=== PATIENT | female | born 1990 | race Caucasian/White ===

== ENCOUNTER 2019-05-14 20:08 | Inpatient (IN) | payer BC, OTHER ==
[~2019-05-14] VITALS: Ht 177.8 cm; Wt 69.9 kg
[2019-05-14 20:05] VITALS: BP 152/111
--- NOTE | 2019-05-14 20:26 | NUR ---
EMS Patient brought in from [place]. C/O nausea and vomiting X1 day - patient believes it to be food poisoning. Was traveling from [place], [place] to [place], [place]. No medical hx, no allergies per patient. Patient unsure if is a factor.
[2019-05-14 20:43] LABS: BILIRUBIN,URINE NEGATIVE (NEGATIVE); UROBILINOGEN,URINE NORMAL (NEGATIVE)
[2019-05-14 20:46] LABS: APPEARANCE,URINE CLOUDY (CLEAR); UA COLOR YELLOW (YELLOW)
[2019-05-14] MEDS ORDERED: NS 25ML 25 ML IV ONE (20:51)
[2019-05-14] MEDS ORDERED: PHENERGAN ONE (20:51)
[2019-05-14] MEDS ORDERED: PHENERGAN IV ONE (21:00)
[2019-05-14 21:17] LABS: BASOPHIL % 0.1 % (0.0-0.2); EOSINOPHIL % 0.2 % (0.0-5.0); LYMPHOCYTES # 1.4 10^3/uL (1.0-4.8); LYMPHOCYTES % 8.5 % (24.0-44.0); MEAN CORP HGB 30.5 pg (26-34); MONOCYTES # 0.7 10^3/uL (0.3-0.8); MONOCYTES % 4.5 % (5.0-12.0); NEUTROPHIL # 14.1 10^3/uL (1.8-7.7); NEUTROPHILS % 86.4 % (41.0-85.0); RED CELL DISTRIBUTION WIDTH 12.4 % (11.5-14.5)
[2019-05-14] MEDS ORDERED: ZOFRAN 4 MG/2 ML VIAL ONE (21:21)
[2019-05-14] MEDS ORDERED: ZOFRAN 4 MG/2 ML VIAL IV ONE (21:30)
[2019-05-14 21:33] LABS: CALCIUM 8.2 mg/dL (8.4-10.5); CARBON DIOXIDE 25.2 mmol/L (20.0-32)
--- NOTE | 2019-05-14 21:53 | DIREP ---
PROCEDURE:XR ABDOMEN 2 VIEWS COMPARISON:None. INDICATIONS:Vomiting TECHNIQUE:Flat and upright views of the abdomen are provided. FINDINGS: BOWEL GAS PATTERN:Normal. CALCIFICATIONS:None significant. LUNG BASES:Clear. BONES:Normal. OTHER:No additional findings. CONCLUSION: 1. Nonobstructive bowel gas pattern and no acute findings. Dictated by: Freemna Jay Jr. on 05/14/2019 at 09:51 PM
--- NOTE | 2019-05-14 21:58 | DIREP ---
PROCEDURE:CT HEAD OR BRAIN W/O CONTRAST COMPARISON:None. INDICATIONS:Dizziness TECHNIQUE:CT images were created without intravenous contrast. FINDINGS: VENTRICLES:The ventricles are normal in size and configuration. CEREBRUM:Normal cerebral morphology with appropriate barboza white matter differentiation. CEREBELLUM:Negative. BRAINSTEM:Negative. BASAL CISTERNS:Negative. HEMORRHAGE:No MASS LESION:No ACUTE INFARCT:No SKULL:Normal. SINUSES:Normal. OTHER:None CONCLUSION:Normal examination. Dictated by: Freeman Jay Jr. on 05/14/2019 at 09:56 PM
[2019-05-14] MEDS ORDERED: ZOSYN 3.375 GM 3.375 GM in NS 100ML 100 ML IV STA (23:04)
[2019-05-14] MEDS ORDERED: NS IV STA (23:04)
[2019-05-14] MEDS ORDERED: NS 100ML 100 ML IV ONE (23:26)
--- NOTE | 2019-05-14 23:39 | NUR ---
MEDS: NEW LITER OF NS HUNG TO GRAVITY. ZOSYN 3.375MG IN NS 100ML STARTED @ 100ML/HR. IV SITE UNREMARKABLE. ASSISTED PT TO REPOSITION ON LEFT SIDE WITH HOB RAISED. PT TOLERATING WELL.
--- NOTE | 2019-05-15 00:29 | DIREP ---
PROCEDURE:CT ABDOMEN/PELVIS W/O CONTRAST COMPARISON:None. INDICATIONS:Abdominal pain and vomiting TECHNIQUE:Axial images were created through the abdomen and pelvis without intravenous contrast material. No oral contrast was administered. Sagittal and coronal reconstructions were performed from source images. FINDINGS: LUNG BASES:Normal. No visible pulmonary or pleural disease. LIVER:Normal. No significant liver lesions are identified. BILIARY:Normal. No visible dilatation or calcification. PANCREAS:Normal. No lesion, fluid collection, ductal dilatation, or atrophy. SPLEEN:Normal. No enlargement or focal lesion. ADRENALS:Normal. No mass or enlargement. URINARY TRACT:Normal. No focal lesions or hydronephrosis. AORTA/VASCULAR:Normal. No aneurysm. RETROPERITONEUM:Normal. No mass or adenopathy. BOWEL/MESENTERY:The appendix is visualized and appears normal. There is no intestinal obstruction, free fluid, free air or mesenteric inflammatory changes. Moderate stool burden. ABDOMINAL WALL:Normal. No mass or hernia. PELVIC ORGANS:Moderate urinary bladder distention. Pelvis otherwise unremarkable. BONES:Normal for age. No bony lesion or acute fracture. OTHER:Negative. CONCLUSION: 1. No acute intra-abdominal/pelvic process demonstrated. 2. Normal appendix. 3. Moderate amount of stool seen throughout the colon, correlate for constipation. Dictated by: Tomer Urban M.D. on 05/15/2019 at 00:24 AM
--- NOTE | 2019-05-15 00:41 | NUR ---
FLOOR ROOM RECEIVED 303
--- NOTE | 2019-05-15 00:55 | ER.PDOC ---
General Chief Complaint: Abdomen Pain Stated Complaint: ABD PAIN,VOMITING Time seen by MD: 21:50 Source: patient Exam Limitations: no limitations History of Present Illness Initial Comments Nausea/vomiting/abdominal pain and dizziness for 2 days. Severity/Quality: moderate, dullness Associated Symptoms (vomiting): freq vomitng Vital Signs First Vital Signs Date Time Temp Pulse Resp B/P (MAP) Pulse Ox O2 Delivery O2 Flow Rate FiO2 05/14/19 20:05 97.5 55 24 100 05/14/19 20:05 152/111 (125) Last Vital Signs Date Time Temp Pulse Resp B/P (MAP) Pulse Ox O2 Delivery O2 Flow Rate FiO2 05/14/19 20:05 97.5 55 24 152/111 (125) 100 Past Medical History Medical History: no pertinent history Surgical History: no surgical history Social History Alcohol Use: occassionally Drug Use: none Constitutional: no symptoms reported EENTM: see HPI Respiratory: no symptoms reported Cardiovascular: no symptoms reported Gastrointestinal: see HPI All Other Systems: Reviewed and Negative Physical Exam General Appearance: No Apparent Distress, WD/WN HEENT: Normal ENT Inspection Neck: Non-Tender, Full Range of Motion, Supple, Normal Inspection Respiratory: chest non-tender, lungs clear, normal breath sounds, no respiratory distress, no accessory muscle use Cardiovascular: Normal Peripheral Pulses, Regular Rate, Rhythm, No Edema, No Gallop, No JVD, No Murmur Gastrointestinal: Normal Bowel Sounds, Non Tender, Soft Back: Normal Inspection, No CVA Tenderness, No Vertebral Tenderness Extremities: Normal Range of Motion, Non-Tender, Normal Inspection, No Pedal Edema, No Calf Tenderness, Normal Capillary Refill, Pelvis Stable 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, No Motor/Sensory Deficits, Alert, Normal Mood/Affect, Oriented x 3 Skin: Normal Color, Warm/Dry Results/Orders Results/Orders Orders - PEPE FORTE MD Urinalysis (05/14/19 20:27) Hcg Urine (05/14/19 20:27) 0.9 % Sodium Chloride (Ns 25ml) (05/14/19 20:51) Promethazine Hcl (Phenergan) (05/14/19 20:51) Urine Culture (05/14/19 20:36) Promethazine Hcl (Phenergan) (05/14/19 21:00) Cbc With Auto Diff (05/14/19 21:05) Comprehensive Metabolic Panel (05/14/19 21:05) Ct Head Wo Contrast (05/14/19 21:05) Lipase (05/14/19 21:06) Xr Abd 2v (05/14/19 21:06) Ondansetron Hcl/Pf (Zofran 4 Mg/2 Ml Via (05/14/19 21:21) Ondansetron Hcl/Pf (Zofran 4 Mg/2 Ml Via (05/14/19 21:30) Ct Abd/Pelvis Wo Iv Contrast (05/14/19 23:04) 0.9 % Sodium Chloride (Ns 1000ml) (05/14/19 23:04) Piperacillin Sodium/Tazobactam (Zosyn 3. (05/14/19 23:04) Blood Culture (05/14/19 23:04) Lactic Acid(Ml) (05/14/19 23:04) 0.9 % Sodium Chloride (Ns 100ml) (05/14/19 23:26) Lactic Acid(Ml) (05/14/19 UNK) Vital Signs Date Time Temp Pulse Resp B/P (MAP) Pulse Ox O2 Delivery O2 Flow Rate FiO2 05/14/19 20:05 97.5 55 24 152/111 (125) 100 05/14/19 20:05 97.5 55 24 100 Administered Medications Medications (Trade) Dose Ordered Sig/Eugenia Route PRN Reason Start Time Stop Time Status Last Admin Dose Admin Ondansetron HCl (Zofran 4 Mg/2 ml Vial) 4 mg OT ONCE IV 05/14/19 21:30 05/14/19 21:31 DC 05/14/19 21:32 4 MG Piperacillin Sod/ Tazobactam Sod 3.375 gm/Sodium Chloride 100 ml @ 100 mls/hr STAT STAT IV 05/14/19 23:04 05/15/19 00:03 UNV 05/14/19 23:29 100 MLS/HR Promethazine HCl (Phenergan) 25 mg OT ONCE IV 05/14/19 21:00 05/14/19 21:01 DC 05/14/19 20:58 25 MG Sodium Chloride 2,041 ml @ 1,020.5 mls/ hr OT STAT IV 05/14/19 23:04 05/15/19 01:03 UNV 05/14/19 23:29 1,020.5 MLS/HR Laboratory Tests Test 05/14/19 20:36 05/14/19 21:14 05/14/19 23:17 Urine Collection Type VOID Urine Color YELLOW (YELLOW) Urine Appearance CLOUDY (CLEAR) H Urine Bilirubin NEGATIVE MG/DL (NEGATIVE) Urine Ketones 50 mg/dL (NEGATIVE) Urine Specific [place] 1.010 (1.005-1.035) Urine pH 7 (5.0-6.0) Urine Protein NEGATIVE (NEGATIVE) Urine Urobilinogen NORMAL (NEGATIVE) Urine Nitrate NEGATIVE (NEGATIVE) Urine Leukocyte Esterase 25 /uL TRACE (NEGATIVE) Urine Blood NEGATIVE (NEGATIVE) Urine RBC 0-2 RBC/HPF (NONE SEEN) Urine WBC 5-10 WBC/HPF (0-2) H Urine Squamous Epithelial Cells MODERATE #/HPF (FEW) Urine Amorphous Sediment SMALL (NONE SEEN) Urine Bacteria FEW (NONE SEEN) H Urine Glucose NORMAL (NEGATIVE) Urine HCG, Qualitative NEGATIVE (NEGATIVE) White Blood Count 16.3 10^3/uL (4.5-11.0) H Red Blood Count 4.52 10^6/uL (4.00-5.20) Hemoglobin 13.8 g/dL (12.0-15.0) Hematocrit 39.9 % (36.0-46.0) Mean Corpuscular Volume 88.3 fL (78-100) Mean Corpuscular Hemoglobin 30.5 pg (26-34) Mean Corpuscular Hemoglobin Concent 34.6 g/dL (33-37) Red Cell Distribution Width 12.4 % (11.5-14.5) Platelet Count 280 10^3/uL (150-400) Mean Platelet Volume 9.6 fL (7.8-11.0) Neutrophils (%) (Auto) 86.4 % (41.0-85.0) H Lymphocytes (%) (Auto) 8.5 % (24.0-44.0) L Monocytes (%) (Auto) 4.5 % (5.0-12.0) L Neutrophils # (Auto) 14.1 10^3/uL (1.8-7.7) H Lymphocytes # (Auto) 1.4 10^3/uL (1.0-4.8) Monocytes # (Auto) 0.7 10^3/uL (0.3-0.8) Absolute Immature Granulocyte (auto 0.05 10^3 u/L (0-2) Immature Granulocytes % 0.30 % (0.00-0.50) Eosinophils % 0.2 % (0.0-5.0) Basophils % 0.1 % (0.0-0.2) Basophils # 0.0 10^3/uL (0.0-0.1) Eosinophil Count 0.0 10^3/uL (0.0-0.2) Sodium Level 137 mmol/L (132-145) Potassium Level 4.1 mmol/L (3.6-5.2) Chloride Level 101.0 mmol/L (96-109) Carbon Dioxide Level 25.2 mmol/L (20.0-32) Anion Gap 14.9 Blood Urea Nitrogen 6 mg/dL (7-18) L Creatinine 0.79 mg/dL (0.59-1.40) Estimated GFR () 104.9 (>/=60) BUN/Creatinine Ratio 7.0 Glucose Level 154 mg/dL (70-110) H Calcium Level 8.2 mg/dL (8.4-10.5) L Total Bilirubin 0.3 mg/dL (0.2-1.0) Aspartate Amino Transferase (AST) 20 U/L (0-35) Alanine Aminotransferase (ALT) 29 U/L (12-78) Alkaline Phosphatase 54 U/L (50-136) Total Protein 7.0 g/dL (6.4-8.2) Albumin 3.6 g/dL (3.4-5.0) Globulin 3.4 Lipase 79 U/L (114-286) L Lactic Acid Level 2.1 mmol/L (0.50-2.00) H Progress Progress CT abdomen/pelvis: No acute intra-abdominal/pelvic process demonstrated. 2. Normal appendix. 3. Moderate amount of stool seen throughout the colon, correlate for constipation. EKG/XRAY/CT/US CT Comments: Normal CT head Departure Time of Disposition: 00:53 Disposition: 09 ADMITTED INPATIENT Impression: Primary Impression: Sepsis Additional Impressions: UTI (urinary tract infection) Intractable nausea and vomiting Condition: Stable Referrals: PCP,UNKNOWN (PCP) PRIMARY CARE PROVIDER Comments Admitted to Dr. Karri Duration or Time Spent with Pa: 60 mins Problem Qualifiers Primary Impression: Sepsis Sepsis type: sepsis due to unspecified organism Sepsis acute organ dysfunction status: unspecified Qualified Codes: A41.9 - Sepsis, unspecified organism Additional Impressions: UTI (urinary tract infection) Urinary tract infection type: site unspecified Hematuria presence: without hematuria Qualified Codes: N39.0 - Urinary tract infection, site not specified PEPE FORTE MD May 15, 2019 00:55
[2019-05-15 02:25] VITALS: BP 151/101
[2019-05-15] MEDS: NS 1000ML/KCL 20MEQ 1,000 ML IV SCH ×3 (03:04→15:22)
[2019-05-15] MEDS ORDERED: NS 100ML 100 ML IV ONE ×2 (04:59→21:15)
[2019-05-15] MEDS: ZOFRAN 4 MG/2 ML VIAL IV PRN (04:59)
[2019-05-15] MEDS: ZOSYN 3.375 GM 3.375 GM in NS 100ML 100 ML IV SCH ×3 (05:03→17:30)
[2019-05-15 07:33] LABS: BASOPHIL % 0.1 % (0.0-0.2); LYMPHOCYTES # 1.3 10^3/uL (1.0-4.8); LYMPHOCYTES % 11.3 % (24.0-44.0); MEAN CORP HGB 30.8 pg (26-34); MONOCYTES # 0.6 10^3/uL (0.3-0.8); MONOCYTES % 5.1 % (5.0-12.0); NEUTROPHIL # 9.4 10^3/uL (1.8-7.7); NEUTROPHILS % 83.3 % (41.0-85.0); RED CELL DISTRIBUTION WIDTH 12.6 % (11.5-14.5)
[2019-05-15 07:51] LABS: CARBON DIOXIDE 25.6 mmol/L (20.0-32)
[2019-05-15 07:52] LABS: CALCIUM 8.7 mg/dL (8.4-10.5)
[2019-05-15 08:03] VITALS: BP 139/80
--- NOTE | 2019-05-15 08:06 | PCM.HP ---
History of Present Illness Reason for Visit: Dizziness, N/V x 1-2 days History of Present Illness Patient is a 28 F no PMH presents with Dizziness, Nausea, vomiting x 1-2 days but symptoms became severe yesterday. Patient in ER found to be septic. CT head negative. Patient has UTI and fecal burden per CT abdomen with no other abnormalities. Patient has no meningeal signs. She is having headache and severe dizziness/vertigo. No fever. She denies constipation and says she had BM yesterday. Her labs, imaging were reviewed. She was started on IVF, IV abx, and blood/urine cx ordered. Patient has no focal deficits. She is not confused. She is alert and answers questions appropriately. Her family reports strong family history of Meniere's Disease with family members having such severe symptoms they were hospitalized. Given this family hx, with no meningeal signs, no focal deficits, no fever, we have source of sepsis from urine, and presence of significant fecal burden I do feel that LP could cause worsening of Meniere's symptoms and is not warranted. She is resting comfortably during my evaluation. I discussed plan of care with patient and she verbalized agreement/understanding. Past Surgical History: Other (EGD) Past Social History Smoke: No Alcohol: occassional Drugs: None Lives: Roommate Travel Hx EBOLA RISK:Travel to/contact w: No Review of Systems Constitutional: No: Fever, Chills Eyes: No: Conjunctivae inflammation, Eyelid inflammation ENT: No: Nose discharge, Nose congestion Respiratory: No: Cough, Shortness of breath, SOB with excertion, Wheezing Cardiovascular: Lt Headedness, Other (dizziness); No: Chest Pain, Palpitations Gastrointestinal: Nausea, Vomiting; No: Abdominal Pain, Diarrhea, Constipation Genitourinary: No Incontinence, No Retention Musculoskeletal: No: neck pain, back pain Skin: No: Rash, Lesions, Jaundice, Bruising Neurological: No: Weakness, Numbness, Incoordination, Change in speech, Confusion, Seizures Allergies: Coded Allergies: No Known Allergies (Unverified , 05/15/19) VTE VTE Risk Total Score: 0 VTE Risk Score VTE Risk: Score 0-1 = Low Risk (Aggressive mobilization; early ambulation; no VTE prophylaxis required) Score 2: Moderate Risk (Intermittent/Pneumatic Compression Device OR Lovenox/Heparin/Coumadin) Score 3-4: High Risk (Intermittent/Pneumatic Compression Device AND Lovenox/Heparin/Coumadin) Score > or =5: Highest Risk (Intermittent/Pneumatic Compression Device AND Lovenox/Heparin/Coumadin) VTE VTE Present on Admission: No Currently receiving anticoagul: No VTE Risk Total Score: 0 Exam Vital Signs Vital Signs Date Time Temp Pulse Resp B/P (MAP) Pulse Ox O2 Delivery O2 Flow Rate FiO2 05/15/19 02:31 Room Air 05/15/19 02:25 97.7 70 17 151/101 (118) 100 General Appearance: Alert, Oriented X3, Cooperative, No acute distress HEENT: Atraumatic, PERRLA, EOMI, Mucous membr. moist/pink Respiratory: Clear to auscultation, Normal air movement Cardiovascular: Regular rate, Normal S1, Normal S2, No murmurs Abdominal: Normal bowel sounds, Soft, No tenderness Extremities: No edema, Normal pulses, No tenderness/swelling Skin: No rash, No breakdown, No lesions Neuro: Normal speech, Strength at 5/5 X4 ext, Normal tone, Sensation intact, Cranial nerves 3-12 NL Psych/Mental Status: Mental status NL, Mood NL Assessment/Plan Assessment/Plan Assessment/Plan Patient is a 28 F no PMH presents with Dizziness, Nausea, vomiting x 1-2 days but symptoms became severe yesterday. Plan 1. Sepsis/UTI: cont IVF, IV abx, blood/urine cx pending. Monitor vitals/urine output. Reflex Lactic Acid below 2. Patient has strong family hx of Meniere's disease and classic presentation. She has no meningeal signs, no fever, no seizures, no focal deficits. We have source of sepsis being from urine and significant colonic fecal burden that could explain symptoms. I do not feel LP is warranted and could worsen clinical symptoms of patient. I discussed with family/patient and they understand. I will increase spectrum of abx to Vancomycin/Rocephin/Acyclovir for coverage of Meningitis in the event that my clinical judgement is wrong. This will decrease risk of Morbidity/Mortality in the event of failed diagnosis. I have ordered MRI for further evaluation to rule out potential MS or other underlying Neurological condition. CT head negative for acute pathology. Because of likelihood of Meniere's and severity of symptoms, family/patient have requested transfer to higher level of care facility. I have attempted transfer and no bed availability. We will continue care until we have accepting facility. 2. Intractable N/V: likely 2/2 vertigo/meniere's disease, fecal burden, and UTI. Cont IV antiemetics. CLD as tolerated. 3. PPx: JOSE, HUGO Hess MD May 15, 2019 08:06
[2019-05-15] MEDS: PROTONIX IV IV SCH (08:49)
[2019-05-15] MEDS: TYLENOL PO PRN ×2 (08:49→21:26)
[2019-05-15] MEDS: LOVENOX SQ SCH (08:49)
[2019-05-15 13:06] VITALS: BP 139/80
[2019-05-15] MEDS ORDERED: NS 25ML 25 ML IV ONE (15:35)
[2019-05-15] MEDS: PHENERGAN IV PRN (15:40)
[2019-05-15 20:00] VITALS: BP 143/94
[2019-05-15] MEDS: ROCEPHIN 1 GM in NS 100ML 100 ML IV SCH ×2 (20:30→21:21)
[2019-05-15] MEDS ORDERED: VANCOMYCIN HCL 1 GM in NS 250ML 250 ML IV SCH (21:00)
[2019-05-15] MEDS ORDERED: ROCEPHIN ONE (21:15)
[2019-05-15] MEDS: ZOVIRAX IV SCH (22:00)
[2019-05-15] MEDS: NS IV SCH (22:00)
[2019-05-15] MEDS ORDERED: COLACE PO ONE (22:45)
[2019-05-15] MEDS ORDERED: COLACE PO STA (22:46)
[2019-05-15] MEDS ORDERED: NS 250ML 250 ML IV ONE (22:53)
[2019-05-15] MEDS ORDERED: VANCOMYCIN HCL 1 GM ONE (22:53)
[2019-05-16] VITALS: BP 143/92
[2019-05-16] MEDS: PHENERGAN IV PRN (00:05)
[2019-05-16] MEDS: NS 1000ML/KCL 20MEQ 1,000 ML IV SCH (03:07)
[2019-05-16] MEDS ORDERED: NS 100ML 100 ML IV ONE (03:21)
[2019-05-16] MEDS: ZOVIRAX IV SCH (03:25)
[2019-05-16] MEDS: NS IV SCH (03:25)
[2019-05-16] MEDS: TYLENOL PO PRN ×2 (03:26→09:11)
[2019-05-16 04:00] VITALS: BP 142/100
[2019-05-16 05:31] LABS: BASOPHIL % 0.2 % (0.0-0.2); EOSINOPHIL # 0.1 10^3/uL (0.0-0.2); EOSINOPHIL % 0.7 % (0.0-5.0); LYMPHOCYTES # 1.8 10^3/uL (1.0-4.8); LYMPHOCYTES % 19.9 % (24.0-44.0); MEAN CORP HGB 30.7 pg (26-34); MONOCYTES # 0.7 10^3/uL (0.3-0.8); MONOCYTES % 8.3 % (5.0-12.0); NEUTROPHIL # 6.3 10^3/uL (1.8-7.7); NEUTROPHILS % 70.8 % (41.0-85.0); RED CELL DISTRIBUTION WIDTH 12.9 % (11.5-14.5)
[2019-05-16 06:15] LABS: CALCIUM 8.5 mg/dL (8.4-10.5); CARBON DIOXIDE 25.4 mmol/L (20.0-32)
[2019-05-16 06:57] VITALS: BP 132/88
[2019-05-16] MEDS ORDERED: PHENERGAN IM STA (08:01)
--- NOTE | 2019-05-16 08:53 | NUR ---
PATIENT BACK ON MED-SURG UNIT TO ROOM #303 FROM MRI AT THIS TIME. PATIENT WAS CONNECTED TO FLUIDS, DENIES NEEDS AT THIS TIME.
[2019-05-16] MEDS ORDERED: ZOVIRAX IV SCH (09:00)
[2019-05-16] MEDS ORDERED: NS IV SCH (09:00)
[2019-05-16] MEDS: LOVENOX SQ SCH (09:10)
[2019-05-16] MEDS: PROTONIX IV IV SCH (09:11)
[2019-05-16] MEDS ORDERED: VANCOMYCIN HCL 1 GM in NS 250ML 250 ML IV SCH (10:00)
--- NOTE | 2019-05-16 10:19 | DIREP ---
This report includes an Addendum and supersedes previous reports for this exam. PROCEDURE:MRI - BRAIN WITH AND WITHOUT CONTRAST COMPARISON:[facility], CT, CT HEAD BRAIN W/O CONTRAST, 05/14/2019, 09:37 PM. INDICATIONS:Severe vertigo TECHNIQUE:A variety of imaging planes and parameters were utilized for visualization of suspected pathology in the brain. Images were performed without and with gadolinium contrast.. FINDINGS: CSF SPACES:There is mass-effect of the right side of the 4th ventricle at the level of the cerebellum. CEREBRUM:No edema, hemorrhage, mass, acute infarction, or inappropriate atrophy. CEREBELLUM:There is large area of abnormal increased T2 signal in the cortex of the inferior and posterior right cerebellum with enlargement of the cortex and mass effect on the brainstem, abnormal signal extends into the vermis. There is a small area of abnormal signal with the left cerebellum only involving the cortex. There is increased DJD OI signal and mild decreased ADC signal. No visible hemorrhage. There is no abnormal postcontrast enhancement of this region. The major intracranial vessels in this region appear patent but this study was not tailored for the vessels. BRAINSTEM:No edema, hemorrhage, mass, acute infarction, or inappropriate atrophy. SKULL:No mass or other significant visible lesion. SINUSES:Limited views demonstrate no significant mucosal thickening or fluid. OTHER:None. CONCLUSION: 1. Large area of abnormal signal in the cortex of the posterior and inferior cortex of the right cerebellum with mass effect on the brainstem, extends into the vermis and small area of abnormal signal within the left cerebellar cortex. Leading consideration is cerebellitis. Differential would also include infarct, but is felt less likely given lack of involvement of the adjacent white matter. Vessels appear normal where visible. This report was called by telephone at approximately 10:00 am on May 16, 2019 to Dusty Zeng. Attending physician is proceeding with lumbar puncture. . Dictated by: Azam Black M.D. on 05/16/2019 at 09:28 AM NDUM: Dr. Trujillo and I spoke about the MRI as there is a potential transfer to new facility ([facility]). Differential is still infection versus infarct. Hamartoma of Llermitte's disease is considered but is uncommon. Dictated by: Azam Black M.D. on 05/16/2019 at 11:25 AM
--- NOTE | 2019-05-16 10:30 | NUR ---
DISCHARGE PLAN CASE MANAGEMENT VISITED WITH PATIENT'S FAMILY CONCERNING DISCHARGE PLAN AND NEEDS. LIVES IN [place] WERE SHE ATTENDS COLLEGE. SHE IS CURRENTLY OFF FOR DELFIN BREAK AND THE PLAN IS FOR HER TO DISCHARGE TO [facility] IN [place] TO ASSIST WITH CARE IF NEEDED AND THROUGH THE [employer]FIN BREAK. INDEPENDENT OF ADLS PRIOR TO THIS ADMISSION. SHE DOES NOT CURRENTLY HAVE A PCP. THE FAMILY IS ALL FROM [place] AND THEY FEEL THEY WILL BE ABLE TO ASSIST HER IN FINDING A PCP IN [place] UPON DISCHARGE. CM CONTACT INFORMATION LEFT AT BEDSIDE IF ASSISTANCE NEEDED. CM EDUCATED PATIENT ON OUTPATIENT SERVICES. VERBALLY DENIES NEED FOR SERVICES. DENIES NEED FOR DME. HAS FINANCIAL ABILITY TO PAY FOR MEDICATIONS UPON DISCHARGE IF NEEDED. DISCHARGE PLAN IS TO DISCHARGE TO [place] WITH FAMILY TO ASSIST WITH CARE IF NEEDED. CM WILL CONTINUE TO FOLLOW FOR DISCHARGE NEEDS.
[2019-05-16] MEDS: ZOFRAN 4 MG/2 ML VIAL IV PRN (11:06)
--- NOTE | 2019-05-16 11:50 | NUR ---
Discharge via ambulance to [facility] pt alert and oriented denies further needs
[2019-05-16 12:00] VITALS: BP 132/88
--- NOTE | 2019-05-17 12:49 | PRM.DC ---
Discharge Summary Date of Discharge: May 16, 2019 Time of Request to Discharge: 10:38 Reason for Visit: Dizziness, N/V x 1-2 days Hospital Course Patient admitted with severe dizziness/vertigo and intractable N/V x 1-2 days. Patient in ER found to be septic with likely source being UTI. Patient also found to have significant stool burden. Patient started on aggressive IVF and IV abx. Blood cx ordered. CT head negative and LP considered but not recommended. Patient was afebrile, had no meningeal symptoms, no photophobia, no seizures, no AMS, and no focal neurological deficits. Patient's ataxia was severe but she had strong family hx of Meniere's disease and other family members had presentation in past with similar symptoms. Patient Lactic Acid returned to normal and Leukocytosis improved with treatment; however, N/V/Ataxia persisted and only improved with IV Promethazine. Patient also having headaches but they improved with Tylenol. I had long discussion with patient family and LP was considered but I did not give strong recommendation. Family objected to LP and requested transfer to higher acuity of care for Neurology/ENT consult. Transfer initiated but no beds available. Plan was to change IV abx to cover for potential of meningitis and to obtain MRI on Thursday until transfer possible. Morning of d/c patient had improved mildly and was able to get out of bed and ambulate. MRI performed and Radiologist called me with concerning acute findings. Please see MRI report for further details. Radiologist did recommend proceeding with LP; however, patient had received ppx Lovenox injection and final MRI read showed mass effect around brainstem. STAT transfer requested and [facility] hospital accepted. Patient was transferred by ambulance with stable vitals. Dr. Trujillo accepted patient as well as Neurosurgeon Dr. Griffith. General: Alert, Oriented X3, Cooperative, mild distress HEENT: Atraumatic, PERRLA, EOMI, Mucous membr. moist/pink Neck: Supple, No JVD Lungs: Clear to auscultation, Normal air movement Heart: Regular rate, Normal S1, Normal S2, No murmurs Abdomen: Normal bowel sounds, Soft, No tenderness Extremities: No edema, Normal pulses, No tenderness/swelling Neuro: Normal speech, Strength at 5/5 X4 ext, Normal tone, Sensation intact, Cranial nerves 3-12 NL Psych/Mental Status: Mental status NL, Mood NL Sepsis Evaluation @ Discharge 05/15/19 07:13 Course Sepsis Screening Results: Posi: NEGATIVE Sepsis Qualifier/Stage: NO DEFINITE RISK Duration or Total Time Spent w: 60 mins Vitals & review Data Intake and Output 05/16/19 05/16/19 05/17/19 15:00 23:00 07:00 Output Total 500 ml Balance -500 ml Laboratory Tests Test 05/16/19 05:00 05/16/19 10:35 White Blood Count 9.0 10^3/uL Red Blood Count 4.46 10^6/uL Hemoglobin 13.7 g/dL Hematocrit 40.2 % Mean Corpuscular Volume 90.1 fL Mean Corpuscular Hemoglobin 30.7 pg Mean Corpuscular Hemoglobin Concent 34.1 g/dL Red Cell Distribution Width 12.9 % Platelet Count 276 10^3/uL Mean Platelet Volume 10.2 fL Neutrophils (%) (Auto) 70.8 % Lymphocytes (%) (Auto) 19.9 % Monocytes (%) (Auto) 8.3 % Neutrophils # (Auto) 6.3 10^3/uL Lymphocytes # (Auto) 1.8 10^3/uL Monocytes # (Auto) 0.7 10^3/uL Absolute Immature Granulocyte (auto 0.01 10^3 u/L Immature Granulocytes % 0.10 % Eosinophils % 0.7 % Basophils % 0.2 % Basophils # 0.0 10^3/uL Eosinophil Count 0.1 10^3/uL Sodium Level 138 mmol/L Potassium Level 3.7 mmol/L Chloride Level 105.0 mmol/L Carbon Dioxide Level 25.4 mmol/L Anion Gap 11.3 Blood Urea Nitrogen 7 mg/dL Creatinine 0.88 mg/dL Estimated GFR () 92.6 BUN/Creatinine Ratio 7.0 Glucose Level 94 mg/dL Calcium Level 8.5 mg/dL Total Bilirubin 0.3 mg/dL Aspartate Amino Transf (AST/SGOT) 18 U/L Alanine Aminotransferase (ALT/SGPT) 24 U/L Alkaline Phosphatase 50 U/L Total Protein 6.7 g/dL Albumin 3.4 g/dL Globulin 3.3 Prothrombin Time 10.4 SEC Prothrombin Time INR (Non-Therap) 1.0 Activated Partial Thromboplast Time 25.2 SEC LEVEL 1 SEPSIS INFECTION CRITE: ABX Therapy, Urinary Tract Infection LEVEL 2-SIRS (LIST ALL THAT AP: [id number] Cardiovascular Evidence: Not Assessed or None Hematologic Evidence: None/Not assessed Hepatic Evidence: None/Not assessed Metabolic Evidence: None/Not assessed Neurological Evidence: None/Not assessed Respiratory Evidence: None/Not assessed Renal Evidence: None/Not assessed O2 Sat by Pulse Oximetry: 96 Plan Discharge Date: May 17, 2019 Dicharge DX: Brain lesion, Sepsis, UTI, Ataxia, intractable nausea/vomiting Discharge Disposition: Stable Plan ok to d/c to [facility] for higher acuity of care medications: per med rec list diet: clear liquids further recs from accepting facility care team. HUGO IVERSON MD May 17, 2019 12:49
== END 2019-05-16 11:50 | disposition short-term general hospital (02) | DRG 872 ==
LOC: ER 20:08 → MS 05-15 00:56
PROVIDERS: ADMIT Family Medicine; ATTEND Family Medicine
DX: A41.9 Sepsis, unspecified organism (principal); N39.0 Urinary tract infection, site not specified; R27.0 Ataxia, unspecified; G93.9 Disorder of brain, unspecified; H81.09 Meniere's disease, unspecified ear
CPT/HCPCS: 36415; 70450; 70553; 74019; 74176; 80053; 81000; 81025; 83605; 83690; 85025; 85610; 85730; 87040; 87086; 99285; A9579; C9113; G0378; J0133; J0696; J1650; J2405; J2543; J2550; J3370; J3490; J7050